=== PATIENT | female | born 1945 | race African-American/Black ===

== ENCOUNTER 2017-06-04 12:45 | Outpatient (CLI) | payer MEDICARE, MEDICAID | END 2017-06-04 12:46 | disposition home or self-care (01) | LOC: BICMAMMO 12:45 | PROVIDERS: ATTEND Family Medicine | DX: Z12.31 Encounter for screening mammogram for malignant neoplasm of breast (principal); Z80.3 Family history of malignant neoplasm of breast | CPT/HCPCS: 77067; G0202 ==

== ENCOUNTER 2018-04-23 10:48 | Outpatient (CLI) | payer MEDICARE, MEDICAID ==
--- NOTE | 2018-04-23 16:12 | ULT ---
BILATERAL RENAL ULTRASOUND: Date: 04/23/18 HISTORY: Renal cyst. COMPARISON: None. FINDINGS: Real-time Robb scale and color evaluation of the kidneys and urinary bladder performed. Right kidney measures 10.7 x 5.6 x 4.4 cm. Left kidney measures 10.7 x 6.0 x 5.1 cm. Simple cyst right kidney yaw ures 1.7 cm, as well as another one measuring up to 2.0 cm. Inferior pole simple cyst measures up to 1.3 cm. Urinary bladder is unremarkable. There is a cyst in the superior pole of the left kidney measuring 1.1 cm. There is a hypoechoic lesio n in the interpolar left kidney measuring 2.6 cm. This is not definitively a cyst. IMPRESSION: Interpolar left kidney hypoechoic focus, may reflect a complex parapelvic cyst, although a mass canno t be totally excluded. A follow-up CT or MRI with renal protocol recommended. CODE T. POS: OFF
== END 2018-04-23 10:49 | disposition home or self-care (01) ==
LOC: BICULT 10:48
PROVIDERS: ATTEND Internal Medicine Nephrology
DX: N18.3 Chronic kidney disease, stage 3 (moderate) (principal); R93.422 Abnormal radiologic findings on diagnostic imaging of left kidney
CPT/HCPCS: 76770

== ENCOUNTER 2018-05-31 09:54 | Outpatient (CLI) | payer MEDICARE, MEDICAID ==
--- NOTE | 2018-05-31 12:18 | CT ---
CT OF THE ABDOMEN WITHOUT AND WITH CONTRAST: Comparison: Renal ultrasound, 04-23-18. History: Mass versus cyst seen in the kidney on prior imaging. Technique: Multiple contiguous axial images were obtained in a CT of the abdomen without and with IV contrast. Post contrast images were obtained in the nephrographic and excretory phases. Coronal refo rmats were performed. FINDINGS: No calcifications were seen in the kidney. There is a nonenhancing 1.8 cm cyst in the right kidney. N o abnormality is seen in the left kidney. Both the visualized renal collecting systems show no filling defect. The patient is status post cholecystectomy. The liver, adrenal glands, spleen, and pancreas are unrem arkable. Scattered diverticula are seen in the colon. The small bowel and appendix are unremarkable. Atherosclerotic calcification is seen in the aorta. No abdominal adenopathy is seen. The visualized l arge and small bowel are unremarkable. Degenerative changes are seen in the spine. The visualized inferior thorax and abdominal wall soft ti ssues are unremarkable. IMPRESSION: Right renal cyst. POS: ABEBE
== END 2018-05-31 09:55 | disposition home or self-care (01) ==
LOC: BICCT 09:54
PROVIDERS: ATTEND Urology
DX: N28.1 Cyst of kidney, acquired (principal); N18.9 Chronic kidney disease, unspecified
CPT/HCPCS: 74170; 74178; 82565

== ENCOUNTER 2021-05-07 08:27 | Outpatient (CLI) | payer MEDICARE, MEDICAID | END 2021-05-07 08:28 | disposition home or self-care (01) | LOC: BICMAMMO 08:27 | PROVIDERS: ATTEND Nurse Practitioner Family | DX: Z12.31 Encounter for screening mammogram for malignant neoplasm of breast (principal); M17.0 Bilateral primary osteoarthritis of knee; M54.2 Cervicalgia; Z80.3 Family history of malignant neoplasm of breast; M47.812 Spondylosis without myelopathy or radiculopathy, cervical region | CPT/HCPCS: 72040; 77063; 77067 ==

== ENCOUNTER 2024-04-25 08:21 | Outpatient (CLI) | payer OTHER, MEDICAID | END 2024-04-25 08:22 | disposition home or self-care (01) | LOC: ULT 08:21 | PROVIDERS: ATTEND Internal Medicine Nephrology | DX: N18.9 Chronic kidney disease, unspecified (principal); N28.1 Cyst of kidney, acquired | CPT/HCPCS: 76770 ==